=== PATIENT | female | born 1950 | race Caucasian/White ===

== ENCOUNTER 2018-02-16 11:51 | Emergency (ER) | payer OTHER, MEDICARE ==
--- NOTE | 2018-02-16 12:07 | EDPHY ---
H & P Stated Complaint: HIGH blood pressure Time Seen by Provider: 02/16/18 11:56 HPI/ROS: 67-year-old female with history of hypertension on metoprolol and lisinopril presents complaining of not feeling well this morning and having an elevated blood pressure of approximately 210/110. She states her doses of her medications were doubled approximately 1 week ago because her pressures were running in the high 180s over 100 . She denies headache, difficulty with speech , stroke-like symptoms, weakness, chest pain, shortness of breath. She did take CBDs this morning and feels that has helped her pressure. Review of systems As per HPI General no fever no chills no weakness HEENT no eye pain no eye discharge. No eye redness, no sore throat Respiratory no cough, no shortness of breath Cardiac no chest pain, no peripheral edema GI no abdominal pain, no diarrhea, no constipation, no nausea, no vomiting no flank pain, no hematuria, no dysuria Musculoskeletal no myalgias, no joint pain Heme no easy bruising, no easy bleeding Endo no polyuria, no polydipsia Skin no rashes, no pruritus Neuro no syncope, no dizziness, no headaches Psych is no suicidal ideation, no homicidal ideation Source: Patient Exam Limitations: No limitations - Personal History Current Tetanus Diphtheria and Acellular Pertussis (TDAP): Yes - Medical/Surgical History Hx Asthma: No Hx Chronic Respiratory Disease: No Hx Diabetes: No Hx Cardiac Disease: Yes Hx Renal Disease: No Hx Cirrhosis: No Hx Alcoholism: No Hx HIV/AIDS: No Hx Splenectomy or Spleen Trauma: No Other PMH: HTN, Parathyroidectomy, Migraines - Family History Significant Family History: No pertinent family hx - Social History Smoking Status: Unknown if ever smoked Alcohol Use: None Drug Use: Marijuana - Physical Exam Exam: 67-year-old female alert and oriented no acute distress nontoxic appearance, afebrile HEENT atraumatic normocephalic, extraocular muscles intact, anicteric Pupils reactive bilaterally, optic discs sharp Oropharynx negative for erythema negative exudate, tolerating her own secretions Neck supple no meningismus Lungs clear to auscultation bilaterally Heart regular rate and rhythm without murmur rub or gallop Abdomen nondistended normoactive bowel sounds soft nontender Back no CVA tenderness, no step-offs, no spinal tenderness Extremities no cyanosis clubbing or edema Neuro alert and oriented, no focal deficits Constitutional: Initial Vital Signs Temperature (C) 36.9 C 02/16/18 11:57 Heart Rate 63 02/16/18 11:57 Respiratory Rate 16 02/16/18 11:57 Blood Pressure 180/100 H 02/16/18 11:57 O2 Sat (%) 94 02/16/18 11:57 O2 Delivery Mode Room Air Allergies/Adverse Reactions: codeine Adverse Reaction (Severe, Verified 02/16/18 12:05) Home Medications: Medication Instructions Recorded Aspirin 02/16/18 Lisinopril 02/16/18 Metoprolol Succinate 02/16/18 amLODIPine BESYLATE [Amlodipine 5 mg PO DAILY #30 tablet 02/16/18 Besylate] Medical Decision Making ED Course/Re-evaluation: Patient seen and evaluated for elevated blood pressure. See HPI EKG normal sinus bradycardia-rate 58, no evidence of LVH, no ischemic changes BMP-normal creatinine Potassium 3.2 Patient given 40 mEq potassium p.o. Patient given 1 dose of hydralazine 2.5 mg IV push Patient given 1 dose of amlodipine 5 mg p.o. I discussed the case with patient's primary care physician our plan is to continue amlodipine 5 mg Daily in addition to patient's current metoprolol and lisinopril. Patient is to follow up with her primary care physician on Wednesday, February 18. Impression Hypertension, poorly controlled Plan DC home with amlodipine Follow-up primary care on WednesdayFebruary 18 Return as needed Differential Diagnosis: Differential diagnosis considered but not limited to: Hypertensive urgency, hypertensive emergency hypertensive crisis, asymptomatic hypertension Failure of antihypertensive medication, noncompliance with antihypertensive medication, , renal failure, pheochromocytoma - Data Points Laboratory Results: 02/16/18 02/16/18 12:42 12:42 POC Hgb 14.3 gm/dL gm/dL (12.6-16.3) POC Hct 42 % % (38-47) POC Sodium 145 mEq/L mEq/L 144 mEq/L mEq/L (135-145) (135-145) POC Potassium 3.3 mEq/L mEq/L 3.2 mEq/L L mEq/L (3.3-5.0) (3.3-5.0) POC Chloride 107.0 mEq/L mEq/L 104 mEq/L mEq/L (97-110) (97-110) POC Total CO2 28 mEq/L mEq/L (-) POC BUN 10 mg/dL mg/dL 12 mg/dL mg/dL (7-23) (7-) POC Creatinine 0.6 mg/dL mg/dL 0.8 mg/dL mg/dL (0.6-1.0) (0.6-1.0) POC Glucose 97 mg/dL mg/dL 98 mg/dL mg/dL (70-100) (70-100) POC Calcium 8.8 mg/dL mg/dL (8.5-10.4) Medications Given: Discontinued Medications Amlodipine Besylate (Norvasc) 5 mg PO EDNOW ONE Stop: 02/16/18 14:31 Last Admin: 02/16/18 14:34 Dose: 5 mg Hydralazine HCl (Apresoline) 5 mg IVP EDNOW ONE Stop: 02/16/18 13:23 Last Admin: 02/16/18 13:42 Dose: Not Given Hydralazine HCl (Apresoline) 2.5 mg IVP EDNOW ONE Stop: 02/16/18 13:41 Last Admin: 02/16/18 13:42 Dose: 2.5 mg Potassium Chloride (Potassium Chloride Oral Liquid) 40 meq PO EDNOW ONE Stop: 02/16/18 12:56 Last Admin: 02/16/18 13:07 Dose: 40 meq Point of Care Test Results: Chemistry 02/16/18 02/16/18 12:42 12:42 POC Sodium 145 mEq/L mEq/L 144 mEq/L mEq/L (135-145) (135-145) POC Potassium 3.3 mEq/L mEq/L 3.2 mEq/L L mEq/L (3.3-5.0) (3.3-5.0) POC Chloride 107.0 mEq/L mEq/L 104 mEq/L mEq/L (97-110) (97-110) POC Total CO2 28 mEq/L mEq/L (-) POC BUN 10 mg/dL mg/dL 12 mg/dL mg/dL (7-23) (7-23) POC Creatinine 0.6 mg/dL mg/dL 0.8 mg/dL mg/dL (0.6-1.0) (0.6-1.0) POC Glucose 97 mg/dL mg/dL 98 mg/dL mg/dL (70-100) (70-100) POC Calcium 8.8 mg/dL mg/dL (8.5-10.4) ISTAT H&H 02/16/18 12:42 POC Hgb 14.3 gm/dL gm/dL (12.6-16.3) POC Hct 42 % % (38-47) Departure - Departure Disposition: Home, Routine, Self-Care Clinical Impression: Hypertension Condition: Good Instructions: Hypertension (ED) Referrals: Diana Jeff MD [Primary Care Provider] - As per Instructions Stand Alone Forms: Work Excuse Prescriptions: amLODIPine BESYLATE [Amlodipine Besylate] 5 mg PO DAILY #30 tablet
--- NOTE | 2018-02-16 12:31 | CPEKG ---
Heart Rate: 58 RR Interval: 1034 P-R Interval: 192 QRSD Interval: 110 QT Interval: 500 QTC Interval: 492 P [place]: 56 QRS [place]: -7 T Wave [place]: 56 EKG Severity - ABNORMAL ECG - EKG Impression: SINUS RHYTHM EKG Impression: NONSPECIFIC INTRAVENTRICULAR CONDUCTION DELAY Electronically Signed By: Anna Garza 17-Feb-2018 18:12:17
[2018-02-16] MEDS ORDERED: POTASSIUM CL 20 MEQ/15 ML UDCUP PO ONE (12:55)
[2018-02-16] MEDS ORDERED: hydrALAZINE 20 MG/ML VIAL IVP ONE ×2 (13:22→13:40)
[2018-02-16] MEDS ORDERED: amLODIPine BESYLATE 5 MG TAB PO ONE (14:30)
[2018-02-16 15:04] VITALS: BP 188/112
== END 2018-02-16 15:04 | disposition home or self-care (01) ==
LOC: CED 11:51
DX: I10 Essential (primary) hypertension (principal); Z79.82 Long term (current) use of aspirin
CPT/HCPCS: 93005; 96374; 99284; J0360; 80048-PO; 82435-PO; 82565-PO; 82947-PO; 84132-PO; 84295-PO; 84520-PO; 85014-PO